=== PATIENT | male | born 1975 | race Caucasian/White ===

== ENCOUNTER 2023-04-14 06:15 | Day surgery (SDC) | payer BC ==
[~2023-04-14 06:15] MED LIST: LIDOCAINE 1% (10MG/ML) FOR IV START INTRADERMA PRN; ONDANSETRON 4 MG/2 ML VIAL IVP ONE; Pre Op ABX Message 1 EACH MISC MISCELLANE ONE; droPERidol 5 MG/2 ML VIAL IVP ONE
[2023-04-14] MEDS ORDERED: HYDROmorphone 0.5 MG/0.5 ML SYRINGE IVP PRN ×3 (07:00→08:31)
[2023-04-14] MEDS ORDERED: DEXAMETHASONE SOD PHOSPHATE 4 MG/ML 1 ML VIAL IVP ONE (07:16)
[2023-04-14] MEDS: LACTATED RINGERS 1,000 ML IV SCH ×3 (07:16→17:40)
[2023-04-14] MEDS ORDERED: fentaNYL (PF) 50 MCG/ML 2 ML AMP ONE (07:22)
[2023-04-14] MEDS ORDERED: KETOROLAC 15 MG/ML 1 ML VIAL ONE (07:22)
[2023-04-14] MEDS ORDERED: LIDOCAINE 1% INJ 10MG/ML (20 ML MDV) ONE (07:22)
[2023-04-14] MEDS ORDERED: GLYCOPYRROLATE 0.2 MG/ML 2 ML VIAL ONE (07:22)
[2023-04-14] MEDS ORDERED: ROCURONIUM 10 MG/ML (5 ML VIAL) IV ONE (07:22)
[2023-04-14] MEDS ORDERED: METOPROLOL TARTRATE 5 MG/5 ML VIAL IVP ONE (07:22)
[2023-04-14] MEDS ORDERED: SUCCINYLCHOLINE CHLORIDE 200 MG/10 ML VIAL IV ONE (07:22)
[2023-04-14] MEDS ORDERED: NEOSTIGMINE 1 MG/ML 10 ML VIAL ONE (07:22)
[2023-04-14] MEDS ORDERED: PROPOFOL 10 MG/ML 20 ML VIAL IV ONE (07:22)
[2023-04-14] MEDS ORDERED: MIDAZOLAM 2 MG/2 ML VIAL ONE (07:22)
[2023-04-14] MEDS ORDERED: KETAMINE HCL IN 0.9 % NACL 50 MG/5 ML SYRINGE ONE (07:22)
[2023-04-14] MEDS ORDERED: SODIUM CHLORIDE 0.9% 100 ML with ceFAZolin 3,000 MG IV ONE ×2 (07:30)
[2023-04-14] MEDS ORDERED: HYDROmorphone 1 MG/ML 1 ML SYRINGE IVP PRN (08:31)
[2023-04-14] MEDS ORDERED: ONDANSETRON 4 MG/2 ML VIAL IVP PRN (08:31)
[2023-04-14] MEDS ORDERED: HYDROcodone/APAP 5-325MG 1 EACH TAB PO PRN ×2 (08:31)
--- NOTE | 2023-04-14 08:38 | P.OP ---
Date of Procedure: 04/14/23 Preoperative Diagnosis: 1. Chronic, nonhealing septic right prepatellar bursitis 2. Current every day cigarette smoker 3. BMI 48.5 Postoperative Diagnosis: 1. Chronic, nonhealing septic right prepatellar bursitis 2. Current every day cigarette smoker 3. BMI 48.5 Procedure(s) Performed: 1. Irrigation and excisional debridement right prepatellar bursa (an excisional debridement using a scalpel of all nonviable skin, subcutaneous tissue, and bursal tissue down to the level of the fascia was performed) 2. Application of negative pressure incision over wound VAC, right knee, less than 50 cm, incision measuring 10 cm Anesthesia: ZULEMA Surgeon: Feng Ventura Air Twist Operator #1: Gabbie Whitt Estimated Blood Loss (ml): 50 IV fluids (ml): 400 Pathology: other (Deep cultures sent) Condition: stable Disposition: PACU Indications for Procedure: The patient is very pleasant 48-year-old male with multiple medical problems including being a current everyday cigarette smoker and having a BMI of 48.5 was been having ongoing problems relating to a septic prepatellar bursa. He initially developed this in December. He has been managed by his primary care physician with wound care, aspiration, and oral antibiotics. After several months of treatment he continued to have an open draining wound and was sent to me for evaluation and treatment. I met with the patient last week. He was found to have an open wound over the anterior aspect of the prepatellar bursa with clear yellow drainage. Due to the length of treatment I recommended operative care. I recommendation was to proceed with an open debridement of his prepatellar bursa and application of a wound VAC. We discussed potential risks and complications including but certainly not limited to risks from anesthesia, delayed wound healing, wound necrosis, failure of the incision to heal, continued or worsened infection, damage to local blood vessels or nerves, damage to local tendinous structures, need for further operative treatment, DVT, PE, and possibly loss of life or limb. The patient voiced his understanding these potential complications all also acknowledging other complications. He also understands that he is at a higher risk of having a complication due to his weight and cigarette smoking. I strongly encouraged him to quit smoking. The patient provided his verbal and written consent for surgery. Operative Findings: There was an open wound the size of a pencil eraser over the prepatellar bursa. The open wound tracked down to the prepatellar bursa. There was no post- purulence but the bursal tissue appeared friable. Description of Procedure: The patient is in for an prep holding and the correct right leg was marked with my initials. I reviewed the consent form with the patient and his mom. All their questions were answered. The patient was then brought back to the operating room. He was positioned on the OR table where general anesthetic and preoperative antibiotics were given. The leg had a tourniquet applied to the proximal aspect of the thigh. A nonsterile drape was applied. A presurgical scrub was performed using a core hexedine scrub brush. The right leg was then prepped and draped in the standard sterile fashion. Prior to starting surgery timeout was performed identifying the correct patient, operative extremity, and procedure. The patient's leg was then elevated, exsanguinated with an Esmarch bandage, and the tourniquet was inflated to 300 mmHg. I began by outlining an incision over the anterior aspect of the open wound extending proximally and distally 5 cm to allow closure of the incision. Skin incision was made with a scalpel and the open wound was excised. Dissection was carried down sharply with a scalpel to the prepatellar bursa. There was no gross purulence but the tissue appeared friable and consistent with a chronic open wound. Tissue was sharply debrided and sent for cultures. I then performed an excisional debridement using a scalpel of all nonviable skin, subcutaneous tissue, and bursal tissue down to the level of the patellar tendon and patella. All nonviable tissue was removed until healthy-appearing tissue remained. Wound was then thoroughly irrigated with 3 L of sterile saline using cystoscopy tubing a curet was used to roughen the surgical wound to help facilitate healing. The wound was then closed in layers with monofilament sutures and the skin closure was reinforced with 3-0 nylon. I verified that all instrument, sponge, and sharp counts were correct. An incisional wound VAC was then placed over the closed incision measuring 10 cm. It was hooked up to its canister with a good seal. The patient was then awoken from his anesthetic, transferred from the or table to a gurney, and brought to recovery having tolerated the procedure well. Gabbie Whitt PA-C was required as a skilled clinical medical assistant due to the complexity of the surgery for patient positioning, retraction, completion of procedure, edward sure of wound, and application of dressing. Plan: The patient is going to be admitted under my care. He can weight-bear as tolerated on his right lower extremity. We will leave the incisional wound VAC in place until his postoperative appointment. I would like to consult infectious disease for recommendations on antibiotics and to take over wound care after the incisional wound VAC is removed. If the patient is seen by infectious disease and they're okay starting him on oral antibiotics I'm okay with him leaving today. If they would like to wait for cultures to finalize before making a plan he is okay to stay as well.
[2023-04-14 13:16] LABS: Basophils % (A) 0 %; Eosinophils # (A) 0.1 k/uL (0-0.7); Eosinophils % (A) 1 %; HCT 44.3 % (39.0-53.0); HGB 14.8 gm/dL (13.0-17.5); Lymphocytes # (A) 0.5 k/uL (1.0-4.8); Lymphocytes % (A) 5 %; MCH 30.8 pg (25.0-35.0); MCHC 33.3 g/dL (31.0-37.0); MCV 92.5 fL (80.0-100.0); Monocytes # (A) 0.2 k/uL (0-1.0); Monocytes % (A) 2 %; Neutrophils # (A) 9.4 k/uL (1.3-7.7); Neutrophils % (A) 92 %; Platelet Count 119 k/uL (150-450); RBC 4.79 m/uL (4.30-5.90); RDW 13.4 % (11.5-15.5); WBC 10.3 k/uL (3.8-10.6)
[2023-04-14 13:32] LABS: African American GFR (CKD) >90 (>60 ml/min/1.73 sqM); Anion Gap 6 mmol/L; Blood Urea Nitrogen 15 mg/dL (9-20); C Reactive Protein 0.9 mg/dL (<1.0); Carbon Dioxide 26 mmol/L (22-30); Chloride 106 mmol/L (98-107); Glucose 128 mg/dL (74-99); Non-African American GFR(CKD) >90 (>60 ml/min/1.73 sqM); Potassium 4.6 mmol/L (3.5-5.1); Sodium 138 mmol/L (137-145)
--- NOTE | 2023-04-14 15:06 | P.CONS ---
History of Present Illness - Reason for Consult Consult date: 04/14/23 Medical management Requesting physician: Dylan Palafox - Chief Complaint Right bursa infection - History of Present Illness This is a 48-year-old patient who follows with Dr. Dylan Palafox. 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 But he says he does use a knee guard. For about a year patient did have intermittent drainage from the right knee. Diagnosed to have prepatellar bursitis. He was treated by his family doctor and was drained twice given anti-inflammatory medications. She went on to become infected and he saw the orthopedic physician about a week ago. Given a course of antibiotic. Described to have yellow drainage. Today he was brought in to have the bursa excised. No obvious pus was noted. Tissue was excised. Patient has a wound VAC in place. Patient denies any fever and chills. Patient denies any chronic illnesses. There is a smoker. Review of systems: GEN.: None EYES: None HEENT: None NECK: None RESPIRATORY: None CARDIOVASCULAR: None GASTROINTESTINAL: None GENITOURINARY: None MUSCULOSKELETAL: As above LYMPHATICS: None HEMATOLOGICAL: None PSYCHIATRY: None NEUROLOGICAL: None Social history: Lives alone. Smokes a pack-a-day for 37 years. 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 EYES: Pupils equal. Conjunctiva normal. HEENT: External appearance of nose and ears normal, oral cavity grossly normal. NECK: JVD not raised; masses not palpable. HEART: First and second heart sounds are normal; no edema. LUNGS: Respiratory rate normal; clear to auscultation. ABDOMEN: Soft, nontender, liver spleen not palpable, no masses palpable. PSYCH: Alert and oriented x3; mood and affect normal. MUSCULOSKELETAL:No Clubbing/cyanosis;muscles-grossly intact. Dressing over the right knee with a wound VAC NEUROLOGICAL: Cranial nerves grossly intact; no facial asymmetry, power and sensation grossly intact. LYMPHATICS: No lymph nodes palpable in the axilla and neck Investigations: None Assessment and plan: -Acute on chronic infective bursitis of the right knee. Patient's had a drained twice as an outpatient also received a course of antibiotic. Having failed the same. She was excised today. No obvious pus was noted. ID was consulted. IV Ancef. Wound VAC in place. We will add naproxen's for and inflammatory affect. -Chronic nicotine dependence, cigarette smoker Patient was counseled. Patient has declined nicotine patch -Morbid obesity BMI 48.5 Consultation dietitian for weight loss diet. Care was discussed with the patient. Questions answered. Thank you Dr. Ventura Past Medical History Past Medical History: No Reported History History of Any Multi-Drug Resistant Organisms: None Reported Additional Past Surgical History / Comment(s): ORCHIECTOMY DUE TO TORSION AT 16 YRS OLD Past Anesthesia/Blood Transfusion Reactions: No Reported Reaction Past Psychological History: No Psychological Hx Reported Smoking Status: Current every day smoker Past Alcohol Use History: None Reported Additional Past Alcohol Use History / Comment(s): Smoking since 11 years old and 1/2 packed a day Past Drug Use History: None Reported - Past Family History Father Family Medical History: Hypertension Medications and Allergies Home Medications Medication Instructions Recorded Confirmed Type No Known Home Medications 04/09/23 04/14/23 History Allergies Allergy/AdvReac Type Severity Reaction Status Date / Time No Known Allergies Allergy Verified 04/14/23 06:46 Physical Exam Vitals: Vital Signs Temp Pulse Resp BP Pulse Ox 04/14/23 14:08 66 136/79 96 04/14/23 13:53 63 139/80 94 L 04/14/23 13:38 70 142/88 95 04/14/23 13:24 67 132/81 91 L 04/14/23 12:53 74 123/75 95 04/14/23 12:38 81 126/77 95 04/14/23 12:23 69 122/85 95 04/14/23 12:08 97.7 F 70 132/88 95 04/14/23 11:36 61 20 117/72 95 04/14/23 11:14 86 20 121/78 94 L 04/14/23 10:41 95 20 118/79 94 L 04/14/23 10:11 70 20 119/78 93 L 04/14/23 09:41 65 20 117/73 93 L 04/14/23 09:26 63 18 126/68 92 L 04/14/23 09:11 73 20 130/74 97 04/14/23 08:56 82 20 146/66 99 04/14/23 08:40 97.8 F 108 H 20 147/75 97 04/14/23 06:54 98.2 F 90 18 132/77 95 Intake and Output 04/13/23 04/14/23 04/14/23 22:59 06:59 14:59 Intake Total 1100 Output Total 50 Balance 1050 Intake: IV 1100 Output: Estimated Blood Loss 50 Other: Weight 153.4 kg 153.4 kg Results CBC & Chem 7: 04/14/23 13:00 04/14/23 13:00 Labs: Abnormal Lab Results - Last 24 Hours (Table) 04/14/23 04/14/23 Range/Units 13:00 13:00 Plt Count 119 L (150-450) k/uL Neutrophils # 9.4 H (1.3-7.7) k/uL Lymphocytes # 0.5 L (1.0-4.8) k/uL Glucose 128 H (74-99) mg/dL
[2023-04-14] MEDS: ceFAZolin 3 GM in SODIUM CHLORIDE 0.9% 100 ML IVPB SCH (15:17)
[2023-04-14] MEDS: ENOXAPARIN 40 MG/0.4 ML SYRINGE SQ SCH (15:17)
[2023-04-14] MEDS: NAPROXEN 250 MG TAB PO SCH ×2 (15:25→21:43)
[2023-04-14] MEDS ORDERED: ceFAZolin 3 GM in SODIUM CHLORIDE 0.9% 100 ML IVPB SCH (16:00)
--- NOTE | 2023-04-14 22:27 | P.CONS ---
History of Present Illness - Reason for Consult Consult date: 04/14/23 - History of Present Illness Patient is a 56-year-old male electively admitted to the hospital after the patient did have I&D of the right prepatellar bursa apparently the patient having a problem with the right knee swelling and pain back in December 2022 and the patient has been evaluated by his primary care physician patient did have aspiration of the send area twice by his primary care physician and cultures were obtained patient has been treated with Keflex however the patient did not have any improvement subsequently patient has been referred to orthopedics patient was taken to the OR in this patient who is status post I&D and excisional debridement of the right prepatellar bursa secondary to chronic nonhealing septic right prepatellar bursitis patient was given cefazolin infectious was consulted for further management of antibiotic therapy patient currently denies having any fever or any chills has been complaining of mostly pain and swelling to right knee area that apparently has been going off and on for since December 2022 with recent worsening patient describes the pain to be more of a dull aching to sharp moderate intensity without any radiation and associated swelling redness, I was able to review the culture that was done by his PCP at the [facility] and they did grew streptococci collected Past Medical History Past Medical History: No Reported History History of Any Multi-Drug Resistant Organisms: None Reported Additional Past Surgical History / Comment(s): ORCHIECTOMY DUE TO TORSION AT 16 YRS OLD Past Anesthesia/Blood Transfusion Reactions: No Reported Reaction Past Psychological History: No Psychological Hx Reported Smoking Status: Current every day smoker Past Alcohol Use History: None Reported Additional Past Alcohol Use History / Comment(s): Smoking since 11 years old and 1/2 packed a day Past Drug Use History: None Reported - Past Family History Father Family Medical History: Hypertension Medications and Allergies Home Medications Medication Instructions Recorded Confirmed Type No Known Home Medications 04/09/23 04/14/23 History Allergies Allergy/AdvReac Type Severity Reaction Status Date / Time No Known Allergies Allergy Verified 04/14/23 06:46 Physical Exam Vitals: Vital Signs Temp Pulse Resp BP Pulse Ox 04/14/23 11:36 61 20 117/72 95 04/14/23 11:14 86 20 121/78 94 L 04/14/23 10:41 95 20 118/79 94 L 04/14/23 10:11 70 20 119/78 93 L 04/14/23 09:41 65 20 117/73 93 L 04/14/23 09:26 63 18 126/68 92 L 04/14/23 09:11 73 20 130/74 97 04/14/23 08:56 82 20 146/66 99 04/14/23 08:40 97.8 F 108 H 20 147/75 97 04/14/23 06:54 98.2 F 90 18 132/77 95 Intake and Output 04/13/23 04/14/23 04/14/23 22:59 06:59 14:59 Intake Total 1100 Output Total 50 Balance 1050 Intake: IV 1100 Output: Estimated Blood Loss 50 Other: Weight 153.4 kg 153.4 kg Results CBC & Chem 7: 04/14/23 13:00 04/14/23 13:00 Assessment and Plan Plan: 1patient with right knee septic prepatellar bursitis and this patient symptom has been going on for few months now and the patient did have a multiple drain age by his PCP and has been treated with oral Keflex without any improvement culture done by his PCP was growing Streptococcus agalactiae 2-cefazolin 3 g every 8 hours as a likely pathogen will be same as Streptococcus agalactiae 3-we will wait for the OR cultures to be finalized 4-patient benefit from a PICC line and outpatient IV antibiotic therapy keeping in mind symptom has been going on for few months and has failed oral Keflex We will follow on clinical condition and cultures to further adjust medication if needed Thank you for this consultation we will follow the patient along with you Dictation was produced using [employer] dictation software. please excuse any grammatical, word or spelling errors. Time with Patient: Greater than 30
[2023-04-15] MEDS: ceFAZolin 3 GM in SODIUM CHLORIDE 0.9% 100 ML IVPB SCH ×4 (00:03→23:36)
[2023-04-15] MEDS: LACTATED RINGERS 1,000 ML IV SCH ×3 (02:20→20:49)
--- NOTE | 2023-04-15 09:12 | P.PN ---
Subjective Progress Note Date: 04/15/23 This patient is a 48-year-old male who is status-post I&D septic right prepatellar bursa on 04/14/23. Today is post-op day #1. Patient is examined bedside this morning. He states his knee pain is well-controlled. Intra-op cultures pending. No new complaints. Objective - Vital Signs Vital signs: Vital Signs Temp 98.1 F 04/15/23 07:05 Pulse 83 04/15/23 07:05 Resp 18 04/15/23 07:05 BP 140/93 04/15/23 07:05 Pulse Ox 95 04/15/23 07:53 FiO2 Intake & Output 04/14/23 04/15/23 04/15/23 18:59 06:59 18:59 Intake Total 1900 Output Total 50 Balance 1850 Weight 153.4 kg Intake: IV 1100 Intake, IV Titration 600 Amount Lactated Ringers 1,000 ml 600 @ 100 mls/hr IV .Q10H [facility] Rx#:[id number] Oral 200 Output: Estimated Blood Loss 50 Other: Voiding Method Toilet # Voids 1 3 - Exam On examination, patient is sitting up in bed in no apparent distress. He is alert and oriented 3. On inspection of the right knee, there is a clean, dry, intact Prevena wound VAC in place. The wound VAC has a good seal at this time. Motor and sensory function is intact of the right lower extremity. Right lower extremity warm and well perfused. Calf nontender. - Labs CBC & Chem 7: 04/14/23 13:00 04/14/23 13:00 Labs: Abnormal Lab Results - Last 24 Hours (Table) 04/14/23 04/14/23 Range/Units 13:00 13:00 Plt Count 119 L (150-450) k/uL Neutrophils # 9.4 H (1.3-7.7) k/uL Lymphocytes # 0.5 L (1.0-4.8) k/uL Glucose 128 H (74-99) mg/dL Microbiology - Last 24 Hours (Table) 04/14/23 08:08 Gram Stain - Preliminary Knee - Right Assessment and Plan Assessment: Status-post I&D septic right prepatellar bursa on 04/14/23. Post-op day #1. Plan: - WBAT on operative extremity. Keep incisional wound VAC in place. Do not remove. - Pain management as needed. - DVT prophylaxis per internal medicine. - Intra-op cultures pending. Continue IV antibiotics per infectious disease. - Anticipate discharge home when discharge antibiotics are determined.
[2023-04-15] MEDS: ENOXAPARIN 40 MG/0.4 ML SYRINGE SQ SCH (09:23)
[2023-04-15] MEDS: NAPROXEN 250 MG TAB PO SCH ×3 (09:24→21:13)
[2023-04-15 12:05] VITALS: BMI 48.5
[2023-04-15 15:58] LABS: Erythrocyte Sedimentation Rate 17 mm/Hr (0-15)
--- NOTE | 2023-04-15 19:10 | P.PN ---
Progress Note - Text Progress Note Date: 04/15/23 Patient is medically stable. No active medical conditions. Being followed by ID. We will follow the patient when necessary. Thank you
[2023-04-15 20:41] VITALS: RESP 18
[2023-04-16] MEDS: LACTATED RINGERS 1,000 ML IV SCH ×2 (01:26)
[2023-04-16] MEDS: ENOXAPARIN 40 MG/0.4 ML SYRINGE SQ SCH (08:27)
[2023-04-16] MEDS: NAPROXEN 250 MG TAB PO SCH ×2 (08:28→16:56)
[2023-04-16] MEDS: ceFAZolin 3 GM in SODIUM CHLORIDE 0.9% 100 ML IVPB SCH (08:29)
[2023-04-16 13:36] VITALS: BP 131/81; TEMP 97.5
[2023-04-16 13:37] VITALS: PULSE 78
--- NOTE | 2023-04-16 15:12 | P.PN ---
Subjective Progress Note Date: 04/15/23 Principal diagnosis: Right knee septic prepatellar bursitis Patient is a 56-year-old male electively admitted to the hospital after the patient did have I&D of the right prepatellar bursa apparently the patient having a problem with the right knee swelling and pain back in December 2022 and the patient has failed outpatient oral antibiotic therapy On today's evaluation of this 04/15/2023, the patient denies any fever and chills, the patient is breathing comfortably on room air and denies any shortness of breath, the patient denies having any chest pain or cough, patient denies Abdominal pain, nausea/vomiting /diarrhea , pain to the right knee is currently controlled Patient did have white count of 10.3 and a creatinine 0.96 as of 04/14/2023 Objective - Vital Signs Vital signs: Vital Signs Temp 98.1 F 04/15/23 07:05 Pulse 83 04/15/23 07:05 Resp 18 04/15/23 07:05 BP 140/93 04/15/23 07:05 Pulse Ox 95 04/15/23 07:53 FiO2 Intake & Output 04/14/23 04/15/23 04/15/23 18:59 06:59 18:59 Intake Total 1900 Output Total 50 Balance 1850 Weight 153.4 kg 153.4 kg Intake: IV 1100 Intake, IV Titration 600 Amount Lactated Ringers 1,000 ml 600 @ 100 mls/hr IV .Q10H [facility] Rx#:[id number] Oral 200 Output: Estimated Blood Loss 50 Other: Voiding Method Toilet # Voids 1 3 - Exam GENERAL DESCRIPTION: Middle-aged male lying in bed in no distress RESPIRATORY SYSTEM: Unlabored breathing , clear to auscultation anteriorly HEART: S1 S2 regular rate and rhythm , ABDOMEN: Soft , no tenderness EXTREMITIES: Right knee is covered with prevana wound VAC - Labs CBC & Chem 7: 04/14/23 13:00 04/14/23 13:00 Labs: Abnormal Lab Results - Last 24 Hours (Table) 04/14/23 04/14/23 Range/Units 13:00 13:00 Plt Count 119 L (150-450) k/uL Neutrophils # 9.4 H (1.3-7.7) k/uL Lymphocytes # 0.5 L (1.0-4.8) k/uL Glucose 128 H (74-99) mg/dL Microbiology - Last 24 Hours (Table) 04/14/23 08:08 Gram Stain - Preliminary Knee - Right Assessment and Plan (1) Septic prepatellar bursitis of right knee Current Visit: Yes Status: Acute Code(s): M71.161 - OTHER INFECTIVE BURSITIS, RIGHT KNEE SNOMED Code(s): 7313422721237445 Plan: 1patient with right knee septic prepatellar bursitis and this patient symptom has been going on for few months now and the patient did have a multiple drainage by his PCP and has been treated with oral Keflex without any improve ment culture done by his PCP was growing Streptococcus agalactiae 2- patient to continue with cefazolin 3 g every 8 hours while waiting for the cultures to finalize Dictation was produced using [employer] dictation software. please excuse any grammatical, word or spelling errors. Time with Patient: Less than 30
--- NOTE | 2023-04-16 15:13 | P.PN ---
Subjective Progress Note Date: 04/16/23 Principal diagnosis: Right knee septic prepatellar bursitis Patient is a 56-year-old male electively admitted to the hospital after the patient did have I&D of the right prepatellar bursa apparently the patient having a problem with the right knee swelling and pain back in December 2022 and the patient has failed outpatient oral antibiotic therapy On today's evaluation of this 04/16/2023, the patient continues to be afebrile, the patient is breathing comfortably on room air, the patient denies any chest pain or cough, patient denies abdominal pain, and denies any nausea/vomiting or diarrhea , pain to the right knee is has decreased in intensity Patient did have white count of 10.3 and a creatinine 0.96 as of 04/14/2023, local cultures with Streptococcus agalactiae Objective - Vital Signs Vital signs: Vital Signs Temp 97.8 F 04/16/23 07:44 Pulse 73 04/16/23 07:44 Resp 18 04/16/23 07:44 BP 143/88 04/16/23 07:44 Pulse Ox 97 04/16/23 07:44 FiO2 Intake & Output 04/15/23 04/16/23 04/16/23 18:59 06:59 18:59 Weight 153.4 kg Other: Voiding Method Toilet # Voids 4 3 - Exam GENERAL DESCRIPTION: Middle-aged male lying in bed in no distress RESPIRATORY SYSTEM: Unlabored breathing , clear to auscultation anteriorly HEART: S1 S2 regular rate and rhythm , ABDOMEN: Soft , no tenderness EXTREMITIES: Right knee is covered with prevana wound VAC - Labs CBC & Chem 7: 04/14/23 13:00 04/14/23 13:00 Labs: Abnormal Lab Results - Last 24 Hours (Table) 04/14/23 Range/Units 13:00 ESR 17 H (0-15) mm/Hr Microbiology - Last 24 Hours (Table) 04/14/23 13:00 Blood Culture - Preliminary Blood 04/14/23 08:08 Gram Stain - Preliminary Knee - Right Tissue Culture - Preliminary Strep agalactiae - (group b) Assessment and Plan (1) Septic prepatellar bursitis of right knee Current Visit: Yes Status: Acute Code(s): M71.161 - OTHER INFECTIVE BURSITIS, RIGHT KNEE SNOMED Code(s): 6965965786900661 Plan: 1patient with right knee septic prepatellar bursitis and this patient symptom has been going on for few months now and the patient did have a multiple drainage by his PCP and has been treated with oral Keflex without any improvement culture done by his PCP was growing Streptococcus agalactiae 2- patient cultures has been finalized with strep cocci agalactiae we will give her dose of Rocephin 2 g 1 now and the patient able to start cefazolin 2 g every 8 hours in the morning plan is for 2-3 weeks of antibiotic. Depending upon clinical response and close outpatient follow-up Dictation was produced using [employer] dictation software. please excuse any grammatical, word or spelling errors. Time with Patient: Less than 30
--- NOTE | 2023-04-16 15:54 | P.DS ---
Providers Expected date of discharge: 04/16/23 Attending physician: Feng Ventura Consults: 04/14/23 08:31 Consult Physician Routine Consulting Provider: Genaro Way Consult Reason/Comments: medical management Do you want consulting provider notified?: Yes 04/14/23 08:34 Consult Physician Routine Consulting Provider: Eliza Weinstein Consult Reason/Comments: antibiotic recommendations Do you want consulting provider notified?: Yes Primary care physician: [facility] Course: This patient is a 48 -year old male who was initially evaluated in the office by Dr. Ventura due to ongoing issues with his right prepatellar bursa. The patient has had an open draining wound at the anterior aspect of his right prepatellar bursa since December. The patient was referred by his primary care physician for surgical intervention. The patient underwent an I&D of septic right prepatellar bursa on 04/14/[address] Ventura. The procedure was performed without complication or sequelae. Vital signs are stable. Patient has been cleared for discharge by internal medicine and infectious disease. Today is post-operative day #2. The patient is doing fairly well in the postoperative period. Intraoperative cultures have resulted a Group B strep. The patient had a PICC line placed earlier today per infectious disease. The patient will be scheduled for outpatient IV antibiotics. There are no new complaints or concerns the day of discharge. On examination, the patient is sitting up in bed in no apparent distress. He is alert and oriented 3. On inspection of the right knee, there is a clean, dry, intact Prevena wound VAC in place. The wound VAC is a good seal at this time. Motor and sensory function is intact of the right lower extremity. The right lower extremities warm and well perfused. Calf is soft and nontender. Patient is discharged home today. He should follow-up in the office at [facility] on 04/21/23 for wound VAC removal. He should follow-up with Dr. Weinstein for continued management of his IV antibiotics. We will defer wound care to Dr. Weinstein following wound VAC removal. Plan - Discharge Summary Discharge Rx Participant: No New Discharge Prescriptions: New Aspirin 81 mg PO DAILY 14 Days #28 tab traMADol HCL 50 mg PO Q6H 3 Days #12 tab Discharge Medication List Aspirin 81 mg PO DAILY 14 Days #28 tab 04/16/23 [Rx] traMADol HCL 50 mg PO Q6H 3 Days #12 tab 04/16/23 [Rx] Follow up Appointment(s)/Referral(s): [facility], [NON-STAFF] - 1-2 Days ([facility] will call you to schedule your in home nursing visits to begin the in home IV antibiotic therapy. ) [facility]fusion [NON-STAFF] - As Needed ([facility] will deliver IV antibiotics on 04/16/23 to the home. ) Patient Instructions/Handouts: Incision and Drainage (DC), Midline Catheter (DC) Activity/Diet/Wound Care/Special Instructions: Weight bear to tolerance on operative extremity. Keep wound vac in place until follow up at [facility]. Continue IV antibiotics per Dr. Weinstein. Follow up in the office at [facility] on Thursday04/21/23.
--- NOTE | 2023-04-17 01:38 | PN ---
PROGRESS NOTE DATE OF SERVICE: 04/16/2023 SUBJECTIVE: This is a 48-year-old gentleman who was admitted with right knee bursitis, is improving significantly. No chest pain, no palpitations, no fever. OBJECTIVE: VITAL SIGNS: Pulse 72, blood pressure 143/80, respirations 18. CHEST: Clear to auscultation. CARDIOVASCULAR: S1, S2. ABDOMEN: Soft. LEGS: Status post surgery. LABORATORY DATA: Noted. ASSESSMENT: 1. Acute on chronic infected bursitis of the right knee. 2. Chronic history of nicotine dependence. 3. Mild thrombocytopenia. RECOMMENDATIONS: Recommended to continue current medications, continue symptomatic treatment, otherwise antibiotics per ID. Follow with primary physician, rest of the recommendations per Orthopedic surgery. MMODL / IJN: [id number] /
== END 2023-04-16 17:45 | disposition home or self-care (01) ==
LOC: OR 06:15 → 4SSUR 08:40 → OR 04-16 17:45
PROVIDERS: ATTEND Orthopaedic Surgery
DX: M70.41 Prepatellar bursitis, right knee (principal); M70.51 Other bursitis of knee, right knee; E66.01 Morbid (severe) obesity due to excess calories; D69.6 Thrombocytopenia, unspecified; F17.210 Nicotine dependence, cigarettes, uncomplicated; Z68.42 Body mass index [BMI] 45.0-49.9, adult; Z79.82 Long term (current) use of aspirin
CPT/HCPCS: 94760; 36410; 76937; 80048; 85652; 85025; 86140; 87040; 87070; 87205; 87075; 87077; 87186; 27340; C1751; J2250; J0330; J1100; J2710; J0690 ×4; J2405; J0696; J2001; J1650 ×3; J3010; J1885; J2704